=== PATIENT | female | born 1970 | race Hispanic/Latino ===

== ENCOUNTER 2020-06-04 12:13 | Day surgery (SDC) | payer OTHER ==
[2020-06-04] MEDS ORDERED: Ringers Lactate 1,000 ML IV ONE (12:51)
[2020-06-04] MEDS ORDERED: KETOROLAC 30 MG/ML INJ ONE (13:23)
[2020-06-04] MEDS ORDERED: propofoL 200 MG/20 ML VIAL IV ONE (13:36)
[2020-06-04] MEDS ORDERED: FENTANYL CITR 100 MCG/2 ML ONE (13:36)
[2020-06-04] MEDS ORDERED: MIDAZOLAM HCL 2 MG/2 ML INJ ONE (13:36)
[2020-06-04] MEDS ORDERED: LIDOCAINE 2% MPF 5 ML VIAL ONE (13:36)
[2020-06-04] MEDS: CEFAZOLIN/SWI 2gm 2 GM/20 ML SYR ONE ×2 (13:45→14:55)
[2020-06-04] MEDS ORDERED: NA CHLORIDE 0.9% 1,000 ML ONE (14:16)
[2020-06-04] MEDS ORDERED: LIDOCAINE 1% W/EPI 1:100,000 MDV 20 ML VIAL ONE (14:16)
[2020-06-04] MEDS ORDERED: SILVER NITRATE 1 APPL TOP ONE (14:16)
[2020-06-04] MEDS ORDERED: dexAMETHasone 10 MG/ML VIAL ONE (15:09)
[2020-06-04] MEDS ORDERED: ONDANSETRON 4 MG/2 ML VIAL ONE (15:09)
[2020-06-04] MEDS ORDERED: CEFAZOLIN SODIUM 1 GM/VIAL ONE (15:11)
[2020-06-04 15:51] VITALS: O2SAT 100
[2020-06-04 16:17] VITALS: BP 104/65; TEMP 97
--- NOTE | 2020-06-04 22:02 | OP ---
Date of Procedure: 06/04/2020 Surgeon: Karen Montero MD Preoperative Diagnosis: Menorrhagia . Postoperative Diagnosis: Menorrhagia . Procedures Performed: Hysteroscopy, D and C. Complications: No complications. Drains: No drains. Condition: The patient's condition is stable. Specimens: Endometrial curettings. Findings: Uterine cavity was anteflexed significantly. Then, the cervical canal had a slight turn t o the right and then back to the left and anteriorly. This was a very difficult turn to take despite dilating it to 16-Chinese, then able to insert even a straight endometrial curette easily into the ca vity and attempt for any straight instrumentation of larger caliber was extremely difficult. I was u nable to place the endometrial ablation device as it was straight and would not turn the curve and al so anteflexed. This had to be aborted. Further dilating would cause problems with cavity integrity, test of ablation cycle and would be difficult to conduct when over dilated. Also due to the caution preventing for uterine perforation due to the presence of the thin anterior wall where the scars were present, the procedure was aborted. The posterior wall of the endometrial canal appeared to be thickened and heterogeneous. Both tubal o stia visualized. The cavity was intact and normal. Indications: The patient is a 50-year-old female, who presented to the office with urinary complaint s. Also discussed about the fact that she has heavier periods and dysmenorrhea that is progressively slightly worse given her perimenopausal age. Transvaginal ultrasound was performed in order to eval uate these symptoms and endometrial sampling was attempted in the office, which was unsuccessful to o btain any significant meaningful endometrium and it was inadequate for biopsy evaluation. Given that her endometrial lining was significant in thickness, she was consented for a diagnostic hysteroscopy and D and C. We also discussed about the options of either waiting and treating this later or going ahead and doing the ablation at the same time if feasible in the understanding that she can be needi ng for the surgery if atypia or malignancy have been diagnosed. She fully understood this, consented and brought to the OR. Procedure In Detail: In the preop area, the consent was re-done with her at her bedside. Th e patient was re-consented and taken back to the OR. After placing her in a supine fashion on the ta ble, general anesthesia was given with LMA. Vulva, vagina, and perineum were prepped and draped in a sterile fashion. The patient was positioned in a dorsal lithotomy position using Sonido stirrups. T hen, anterior lip was grasped with 2 Allis clamps and diagnostic hysteroscopy was performed with Slim Line diagnostic hysteroscope. The cervical canal was traversed. There was a slight turn to the righ t and then to the left anteriorly and once I got into the uterine cavity, it was completely intact. The posterior wall appeared to be heterogeneous and thickened. The endometrial cavity appearance was unremarkable. Both tubal ostia visualized. Scope was pulled out. Cervix was dilated to 16-Chinese sequentially . This was feasible. However, using a straight instrument to get into the endometrial cavity was extremely difficult, so e ndometrial biopsy Pipelle was used first to first go ahead and get a good sample and this was done di recting the Pipelle to the posterior wall. Then, a small 0 endometrial curette was inserted x1 and s craped gently. All sample was handed off for permanent pathology and all the instrument, needle, and sponge counts were correct at the case of the case. The patient tolerated the procedure well. She was recovered from anesthesia and taken to the PACU in stable condition. I explained to the as well as the patient why the ablation was not feasible and that we would discuss the options of the path report and she was agreeable to this. She was discharged home. ZACHARY/GONZALES Voice ID: [id number] Report ID: [id number]
== END 2020-06-04 17:00 | disposition home or self-care (01) ==
LOC: OR 12:13
PROVIDERS: ATTEND Obstetrics & Gynecology
PROC: 0UJD8ZZ Inspection of Uterus and Cervix, Via Natural or Artificial Opening Endoscopic (ICD-10-PCS; 2020-06-04)
PROC: 0UDB7ZX Extraction of Endometrium, Via Natural or Artificial Opening, Diagnostic (ICD-10-PCS; principal; 2020-06-04 07:30)
DX: N94.6 Dysmenorrhea, unspecified (principal); N92.1 Excessive and frequent menstruation with irregular cycle; N32.81 Overactive bladder; E78.5 Hyperlipidemia, unspecified; Z20.822 Contact with and (suspected) exposure to COVID-19
CPT/HCPCS: 81025; 88305; 58558; U0002; J2704; J2250; J3010; J1100; J0690 ×2; J7120; J7030; J2405

== ENCOUNTER → 2023-05-09 | Emergency (ER) | payer OTHER ==
[~2023-05-09] MED LIST: DIAZEPAM 5 MG TABLET ONE; IBUPROFEN 200 MG TAB PO ONE; IBUPROFEN 400 MG TAB ONE
--- OUTSIDE RECORDS SUMMARY | 2023-05-09 15:40 | XMS REPORT | Continuity of Care Document ---
Author Name Unknown Address [address] [place] [address] [facility] [address] [place] [address] Care Team Providers Care Door Fitter Name Role Phone [email or web address]_Kadiyala_S Attending Clinician Unavaila ble KadiKaren uriostegui Attending Clinician Unavaila ble GC_GCBZW_Kadiyala_S Admitting Clinician Unavaila ble CarolineaKaren Admitting Clinician Unavaila ble Payers Payer Name Policy Type Policy Number Effective Date Expirati on Date Source [employer] - CHOICE (POS II) [id number] 2010 00:00:00 Allergies, Adverse Reactions, Alerts Allergy Name Allergy Type Status Severity Reaction(s) Onset Date Inactive Date Treating Clinician Comments Source No Known Drug Intolera nces DA Active U 04-29 00:00: 00 [facility] No Known Contrast Allergie s DA Active U 11-05 00:00: 00 [facility] No Known Food Allergie s DA Active U 11-05 00:00: 00 [facility] Encounters Start Date/Time End Date/Time Encounter Type Admission Type Attending Clinicians Care Facility Care Department Encounter ID Source 2023-05-09 00:00:00 2023-05-09 00:00:00 Outpatient GC_GCBZW_Ka diyala_S [facility] [id number] [facility] 2023-03-26 00:00:00 2023-03-26 00:00:00 Outpatient GC_GCBZW_Ka diyala_S [facility] [id number] [facility] 2023-03-22 00:00:00 2023-03-22 00:00:00 Outpatient GC_GCBZW_Ka diyala_S PRIV PRIV [id number] [facility] 2023-03-12 00:00:00 2023-03-12 00:00:00 Outpatient GC_GCBZW_Ka diyala_S PRIV PRIV [id number] [facility] 2023-02-02 00:00:00 2023-02-02 00:00:00 Outpatient GC_GCBZW_Ka diyala_S PRIV PRIV [id number] [facility] 2023-02-02 00:00:00 2023-02-02 00:00:00 Outpatient GC_GCBZW_Ka diyala_S PRIV PRIV [id number] [facility] 2023-01-30 00:00:00 2023-01-30 00:00:00 Outpatient GC_GCBZW_Ka diyala_S PRIV PRIV [id number] [facility] 2023-01-30 00:00:00 2023-01-30 00:00:00 Outpatient GC_GCBZW_Ka diyala_S PRIV PRIV [id number] [facility] 2023-01-02 00:00:00 2023-01-02 00:00:00 Outpatient GC_GCBZW_Ka diyala_S PRIV PRIV [id number] [facility] 2022-12-21 00:00:00 2022-12-21 00:00:00 Outpatient GC_GCBZW_Ka diyala_S PRIV PRIV [id number] [facility] 2022-12-21 00:00:00 2022-12-21 00:00:00 Outpatient GC_GCBZW_Ka diyala_S PRIV PRIV [id number] [facility] 2022-12-21 00:00:00 2022-12-21 00:00:00 Outpatient GC_GCBZW_Ka diyala_S PRIV PRIV [id number] [facility] 2022-12-05 00:00:00 2022-12-05 00:00:00 Outpatient GC_GCBZW_Ka diyala_S PRIV PRIV [id number] [facility] 2022-11-17 00:00:00 2022-11-17 00:00:00 Outpatient GC_GCBZW_Ka diyala_S PRIV PRIV [id number] [facility] 2022-11-17 00:00:00 2022-11-17 00:00:00 Outpatient GC_GCBZW_Ka diyala_S PRIV PRIV [id number] [facility] 2022-11-17 00:00:00 2022-11-17 00:00:00 Outpatient GC_GCBZW_Ka diyala_S PRIV PRIV [id number] [facility] 2022-11-09 00:00:00 2022-11-09 00:00:00 Outpatient GC_GCBZW_Ka diyala_S PRIV PRIV [id number] [facility] 2022-11-07 00:00:00 2022-11-07 00:00:00 Outpatient GC_GCBZW_Ka diyala_S PRIV PRIV [id number] [facility] 2022-10-12 00:00:00 2022-10-12 00:00:00 Outpatient GC_GCBZW_Ka diyala_S PRIV PRIV [id number] [facility] 2022-10-12 00:00:00 2022-10-12 00:00:00 Outpatient GC_GCBZW_Ka diyala_S PRIV PRIV [id number] [facility] 2022-10-12 00:00:00 2022-10-12 00:00:00 Outpatient GC_GCBZW_Ka diyala_S PRIV PRIV [id number] [facility] 2022-09-11 00:00:00 2022-09-11 00:00:00 Outpatient GC_GCBZW_Ka diyala_S PRIV PRIV [id number] [facility] 2022-09-11 00:00:00 2022-09-11 00:00:00 Outpatient GC_GCBZW_Ka diyala_S PRIV PRIV [id number] [facility] 2022-09-11 00:00:00 2022-09-11 00:00:00 Outpatient GC_GCBZW_Ka diyala_S PRIV PRIV [id number] [facility] 2022-09-11 00:00:00 2022-09-11 00:00:00 Outpatient GC_GCBZW_Ka diyala_S PRIV PRIV [id number] [facility] 2022-09-11 00:00:00 2022-09-11 00:00:00 Outpatient GC_GCBZW_Ka diyala_S PRIV PRIV [id number] [facility] 2022-06-30 10:23:00 2022-06-30 10:23:00 Outpatient Karen Borges [facility] [id number] [facility]
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
[2023-05-09 18:07] VITALS: BP 140/90; TEMP 98.1; O2SAT 99
== END ==
LOC: ER 15:38
DX: S16.1XXA Strain of muscle, fascia and tendon at neck level, initial encounter (principal); S29.012A Strain of muscle and tendon of back wall of thorax, initial encounter; S29.011A Strain of muscle and tendon of front wall of thorax, initial encounter; V49.49XA Driver injured in collision with other motor vehicles in traffic accident, initial encounter
CPT/HCPCS: 70450; 71250; 72125; 99285